=== PATIENT | male | born 1955 ===

== ENCOUNTER 2021-04-17 13:00 | Outpatient (CLI) | payer OTHER | END 2021-04-17 13:15 | disposition home or self-care (01) | LOC: PPH VACUNA 13:00 | PROVIDERS: ATTEND Emergency Medicine Pediatric Emergency Medicine | DX: Z23 Encounter for immunization (principal) ==

== ENCOUNTER 2021-05-26 09:21 | Outpatient (CLI) | payer OTHER | END 2021-05-26 09:32 | disposition home or self-care (01) | LOC: SONOGRAMA 09:21 | PROVIDERS: ATTEND Pathology Anatomic Pathology & Clinical Pathology | DX: E04.2 Nontoxic multinodular goiter (principal) ==